=== PATIENT | male | born 1980 | race Two or more races ===

== ENCOUNTER 2025-01-05 09:51 | Emergency (ER) | payer BC, OTHER ==
[~2025-01-05] VITALS: Ht 170.2 cm; Wt 69.2 kg
--- NOTE | 2025-01-05 10:57 | ED.PDOC ---
History of Present Illness HPI Comments 44-year-old male who presents to the ED with a chief complaint of wound check. Patient states he began experiencing a wound to left buttock 5 days ago, went to Dr. Rao[facility] walk-in clinic, was prescribed antibiotics. He has been taking antibiotics as prescribed, applying warm compresses to wound. States pain has worsened, increases with ambulation. Patient's states she has been applying the warm compresses, notices wounds are worsening. She states wounds have popped, or still actively bleeding, she noticed wounds are deep. Denies fever, chills, nausea, vomiting, diarrhea, dizziness, numbness/tingling, shortness of breath. No other symptoms or modifying factors present at this time. Chief Complaint: Wound Check Time Seen by MD: 10:50 Reviewed Notes: Medications, Allergies Allergies: Coded Allergies: NO KNOWN ALLERGIES (Unverified , 01/05/25) Information Source: Patient, Spouse Mode of Arrival: Ambulatory Severity: Moderate Timing: Days Duration: Since onset Prehospital treatment: Other (antibitoi) Family History Family History: Reviewed,noncontributory to illness, No family hx of Cancer, No family hx of DM, No family hx of Heart dennis, No family hx of HTN, No family hx ofKidney dennis, No family hx of Liver dennis, No family hx of Lung dennis, No family hx of Stroke Social History Smoker: Non-Smoker Alcohol: Denies ETOH Use Drugs: Denies Drug Use Lives In: Home Constitutional: denies: chills, diaphoresis, fatigue, fever, malaise, sweats, w eakness, others EENTM: denies: blurred vision, double vision, ear bleeding, ear discharge, ear drainage, ear pain, ear ringing, eye pain, eye redness, hearing loss, mouth pain, mouth swelling, nasal discharge, nose bleeding, nose congestion, nose pain, photophobia, tearing, throat pain, throat swelling, voice changes, others Respiratory: denies: cough, hemoptysis, orthopnea, SOB at rest, shortness of breath, SOB with excertion, stridor, wheezing, others Cardiovascular: denies: chest pain, dizzy spells, diaphoresis, Dyspnea on exertion, edema, irregular heart beat, left arm pain, lightheadedness, palpitations, PND, syncope, others Gastrointestinal: denies: abdomen distended, abdominal pain, blood streaked bowels, constipated, diarrhea, dysphagia, difficulty swallowing, hematemesis, melena, nausea, poor appetite, poor fluid intake, rectal bleeding, rectal pain, vomiting, others Genitourinary: denies: burning, dysuria, flank pain, frequency, hematuria, incontinence, penile discharge, penile sore, pain, testicle pain, testicle swe lling, urgency, others Neurological: denies: dizziness, fainting, headache, left sided numbness, left sided weakness, numbness, paresthesia, pre-existing deficit, right sided numbness, right sided weakness, seizure, speech problems, tingling, tremors, weakness, others Musculoskeletal: denies: back pain, gout, joint pain, joint swelling, muscle pain, muscle stiffness, neck pain, others Integumetry: reports: wounds (LT buttock); denies: bruises, change in color, change in hair/nails, dryness, laceration, lesions, lumps, rash, others Allergic/Immunocompromised: denies: Difficulty Healing, Frequent Infections, Hives, Itching, others Hematologic/Lymphatic: denies: anemia, blood clots, easy bleeding, easy bruising, swollen glands, others Endocrine: denies: excessive hunger, excessive sweating, excessive thirst, excessive urination, flushing, intolerance to cold, intolerance to heat, unexplained weight gain, unexplained weight loss, others Psychiatric: denies: anxiety, bipolar disorder, depression, hopeless, panic disorder, schizophrenia, sleepless, suicidal, others All Other Systems: Reviewed and Negative Physical Exam General Appearance: Moderate Distress, Normal HEENT: Normal ENT Inspection, Pharynx Normal, TMs Normal Neck: Full Range of Motion, Non-Tender, Normal, Normal Inspection Respiratory: Chest Non-Tender, Lungs Clear, No Accessory Muscle Use, No Respiratory Distress, Normal Breath Sounds Cardiovascular: No Edema, No JVD, No Murmur, No Gallop, Normal Peripheral Pulses, Regular Rate/Rhythm Breast Exam: Deferred Gastrointestinal: No Organomegaly, Non Tender, No Pulsatile Mass, Normal Bowel Sounds, Soft Genitalia: Deferred Pelvic: Deferred Rectal: Deferred Extremities: No calf tenderness, Normal capillary refill, Normal inspection, Normal range of motion, Non-tender, No pedal edema Musculoskeletal : Apperance: Normal Neurologic: Alert, electrician research II-XII nml as Tested, No Motor Deficits, Normal Affect, Normal Mood, No Sensory Deficits Cerebellar Function: Normal Reflexes: Normal Skin: Dry, Normal Color, Warm, Wounds (Left gluteal region extending into the perineum) Peripheral Pulses: 3+ Radial (R), 3+ Radial (L) Lymphatic: No Adenopathy Was a procedure done? Was a procedure done?: No Differential Dx Considerations may include: Abscess Necrotizing infection X-Ray, Labs, Meds, VS Vital Signs Date Time Temp Pulse Resp B/P (MAP) Pulse Ox O2 Delivery O2 Flow Rate FiO2 01/05/25 13:29 90 19 142/85 01/05/25 13:15 98.9 90 16 142/85 (104) 98 98.9 01/05/25 13:15 90 16 98 Room Air 01/05/25 09:59 98.0 107 18 140/97 98 98.0 Lab Test 01/05/25 15:06 01/05/25 10:53 Range/Units Lactic Acid Level Pending White Blood Count 8.8 4.4-10.8 10^3/uL Red Blood Count 4.64 4.5-5.90 10^6/uL Hemoglobin 15.3 13.5-17.5 g/dL Hematocrit 43.2 41.0-53.0 % Mean Corpuscular Volume 93.1 80.0-100.0 fL Mean Corpuscular Hemoglobin 33.0 H 28.0-32.0 pg Mean Corpuscular Hemoglobin Concent 35.5 32.0-36.0 g/dL Red Cell Distribution Width 13.0 11.8-14.3 % Platelet Count 498 H 140-450 10^3/uL Mean Platelet Volume 6.3 L 6.9-10.8 fL Neutrophils (%) (Auto) 62.7 37.0-80.0 % Lymphocytes (%) (Auto) 21.3 10.0-50.0 % Monocytes (%) (Auto) 13.8 H 0.0-12.0 % Eosinophils (%) (Auto) 1.8 0.0-7.0 % Basophils (%) (Auto) 0.4 0.0-2.0 % Neutrophils # (Auto) 5.5 1.6-8.6 10 ^3/uL Lymphocytes # (Auto) 1.9 0.4-5.4 10 ^3/uL Monocytes # (Auto) 1.2 0-1.3 10 ^3/uL Eosinophils # (Auto) 0.2 0-0.8 10 ^3/uL Basophils # (Auto) 0 0-0.2 10 ^3/uL Nucleated Red Blood Cells 0.0 % Sodium Level 142 136-145 mmol/L Potassium Level 4.1 3.5-5.1 mmol/L Chloride Level 107 98-107 mmol/L Carbon Dioxide Level 25 20-31 mmol/L Anion Gap 10 5-15 Blood Urea Nitrogen 13 9-23 mg/dL Creatinine 0.81 0.700-1.30 mg/dL Glomerular Filtration Rate Calc 112 >90 mL/min BUN/Creatinine Ratio 16.0 10.0-20.0 Serum Glucose 162 H 74-106 mg/dL Calcium Level 9.2 8.7-10.4 mg/dL Current Medications Medications (Trade) Dose Ordered Sig/Anthony Route Start Time Stop Time Status Last Admin Sodium Chloride 1,000 ml @ 1,000 mls/hr Q1H ONCE IV 01/05/25 12:30 01/05/25 13:29 DC 01/05/25 13:30 Morphine Sulfate 4 mg ONCE ONCE IV 01/05/25 12:30 01/05/25 12:31 DC 01/05/25 13:29 Ondansetron HCl (Zofran) 4 mg ONCE ONCE IV 01/05/25 12:30 01/05/25 12:31 DC 01/05/25 13:30 [place] [id number] Ph: [phone] DIAGNOSTIC IMAGING Diagnostic Imaging Report : [id number] Signed PATIENT: ANIA LUCIAACCT: [id number] UNIT: [id number] : 1980 LOC: ER ROOM / BED: / AGE / SEX: 44 / M ADM STATUS: REG ER SERVICE 1201 ORDERING PHYSICIAN: RUBEN ZUNIGA MD PROCEDURE(s): PL2CT - PELVIS WO CONTRAST REASON: buttockwoundcellulitis ORDER NUMBER(s): [id number], ACCESSION NUMBER(s): [id number] EXAM: CT PELVIS WO CONTRAST HISTORY: buttockwoundcellulitis COMPARISON: None TECHNIQUE: Noncontrast axial CT images of the pelvis were performed. Sagittal and coronal reformatted images were obtained. This CT exam was performed using one or more of the following dose reduction techniques: Automated exposure control, adjustment of the mA and/or kV according to patient size, or use of iterative reconstruction technique. Radiation Dose Information: CT Dose: CTDI volume is 21.0 mGy. Dose-length product is 890.77 mGy*cm. FINDINGS: There are pockets of gas and fat stranding in the subcutaneous fat of the left gluteal region and perineum (images 53-70, series 2). There may be a subcutaneous abscess or developing abscess in the subcutaneous fat (image 69, series 2; image 90, series 601) measuring 2 cm. No obvious communication is identified to the anus or rectum. No abnormal bowel dilatation, free air, or free fluid. There are descending colon diverticula without evidence of acute diverticulitis, although the colon is not fully imaged here. The appendix is not dilated. The prostate is mildly enlarged. The urinary bladder is unremarkable. No fracture or dislocation are identified about the pelvis or hips. No si gnificant degenerative changes of the hips. There is [id number] lower lumbar degenerative disc disease. IMPRESSION: 1. Pockets of gas and fat stranding in the left perineum and gluteal subcutaneous fat suggestive of gas forming bacterial infection. Additionally, there may be abscess or developing abscess in the left gluteal subcutaneous fat measuring 2 cm. Recommend surgical consultation as soft tissue debridement may be warranted. 2. Mild prostatic enlargement. 3. Colonic diverticulosis without evidence of acute diverticulitis. The colon is not fully imaged here. 4. Lower lumbar degenerative disc disease. ATED BY: FLOYD GRAJEDA MD DICTATED DATE/TIME: 01/05/25 125 SIGNED BY: FLOYD GRAJEDA MD SIGNED DATE/TIME: 01/05/25 125 CC: Patient alert. Came in for a wound in the left butt cheek. Vitals stable. Answering questions. CT scan of the pelvis does show gas-forming organism infection. Surgical consultation. Possibly will need higher level of transfer. Establish intravenous access. Was given fluids. Spoke with general surgeon Dr. Fischl stated that we do not have Urology on-call as well as him alone can not do bright because he will need another para hands for complicated surgery like this which can going to full-blown sepsis causing harm to the patient. Was instructed to transferred to higher level of care. Was given Rocephin. Was given clindamycin. Explained to the patient. Continue to monitor. Time of 1ST Reevaluation: 11:20 Reevaluation 1ST: Unchanged Patient Education/Counseling: Diagnosis, Treatment, Prognosis Family Education/Counseling: Diagnosis, Treatment, Need For Follow Up SEPSIS Sepsis Screen Date sepsis recognized/suspect: Jan 05, 2025 Time Sepsis recognized/suspect: 1002 Recent Procedure: No On Antibiotic Therapy: No Respiratory Rate >20: No Heart Rate >90: Yes Temp<36 C (96.8 F) or >38.3 C: No SBP <90 or MAP <65 mmHG: No New Acute Mental Status Change: No Is the patient on CPAP, BIPAP,: No Physician Orders Urinalysis (01/05/25 10:13) Pelvis Wo Contrast (01/05/25 12:01) Sodium Chloride 0.9% (01/05/25 12:30) Blood Culture (01/05/25 14:32) Lactic Acid W/ Reflex Order (01/05/25 14:32) Clindamycin 300mg Iv (Cleocin Iv) (01/05/25 14:45) * Surgical Consult (01/05/25 ) Imaging Transfer Request (01/05/25 14:54) Vital Signs Date Time Temp Pulse Resp B/P (MAP) Pulse Ox O2 Delivery O2 Flow Rate FiO2 01/05/25 13:29 90 19 142/85 01/05/25 13:15 98.9 90 16 142/85 (104) 98 98.9 01/05/25 13:15 90 16 98 Room Air 01/05/25 09:59 98.0 107 18 140/97 98 98.0 Laboratory Tests Test 01/05/25 10:53 01/05/25 15:06 White Blood Count 8.8 10^3/uL (4.4-10.8) Lactic Acid Level Pending Medications Medications Dose Ordered Sig/Anthony Route Start Time Stop Time Status Last Admin Dose Admin Morphine Sulfate 4 mg ONCE ONCE IV 01/05/25 12:30 01/05/25 12:31 DC 01/05/25 13:29 Ondansetron HCl 4 mg ONCE ONCE IV 01/05/25 12:30 01/05/25 12:31 DC 01/05/25 13:30 Sodium Chloride 1,000 ml @ 1,000 mls/hr Q1H ONCE IV 01/05/25 12:30 01/05/25 13:29 DC 01/05/25 13:30 Departure 1 Departure Time of Disposition: 14:36 Impression: Primary Impression: Necrotizing cellulitis Disposition: 02 SHORT TERM HOSPITAL Admit to: Med Surg Condition: Guarded Critical Care Note Critical Care Time?: Yes (90 min-critical care time only) Stability Stability form required: No Heart Score Heart Score: Heart Score Response (Comments) Value History N/A 0 EKG N/A 0 Age N/A 0 Risk Factors N/A 0 Troponin N/A 0 Total 0 I personally scribed for RUBEN ZUNIGA MD ([email or web address]) on 01/05/25 at 10:57. Electronically submitted by Ana Goodman ([email or web address]). I personally scribed for RUBEN ZUNIGA MD ([email or web address]) on 01/05/25 at 13:41. Electronically submitted by Ana Goodman ([email or web address]). RUBEN ZUNIGA MD Jan 05, 2025 10:57
[2025-01-05 11:07] LABS: Hematocrit 43.2 % (41.0-53.0); Hemoglobin 15.3 g/dL (13.5-17.5); Mean Corpuscular Hemoglobin 33.0 pg (28.0-32.0); Mean Corpuscular Volume 93.1 fL (80.0-100.0); Nucleated Red Blood Cells % 0.0 %
[2025-01-05 11:19] LABS: Chloride 107 mmol/L (98-107); Potassium 4.1 mmol/L (3.5-5.1); Sodium 142 mmol/L (136-145)
[2025-01-05 11:20] LABS: Anion Gap 10 (5-15); Carbon Dioxide 25 mmol/L (20-31)
[2025-01-05 11:21] LABS: Calcium 9.2 mg/dL (8.7-10.4)
[2025-01-05 11:26] LABS: BUN/Creatinine Ratio 16.0 (10.0-20.0); Blood Urea Nitrogen 13 mg/dL (9-23); Glucose 162 mg/dL (74-106)
--- NOTE | 2025-01-05 12:59 | DVH ---
EXAM: CT PELVIS WO CONTRAST HISTORY: buttockwoundcellulitis COMPARISON: None TECHNIQUE: Noncontrast axial CT images of the pelvis were performed. Sagittal and coronal reformatted images were obtained. This CT exam was performed using one or more of the following dose reduction techniques: Automated ex posure control, adjustment of the mA and/or kV according to patient size, or use of iterative reconst ruction technique. Radiation Dose Information: CT Dose: CTDI volume is 21.0 mGy. Dose-length product is 890.77 mGy*cm. FINDINGS: There are pockets of gas and fat stranding in the subcutaneous fat of the left gluteal region and per ineum (images 53-70, series 2). There may be a subcutaneous abscess or developing abscess in the sub cutaneous fat (image 69, series 2; image 90, series 601) measuring 2 cm. No obvious communication is identified to the anus or rectum. No abnormal bowel dilatation, free air, or free fluid. There are d escending colon diverticula without evidence of acute diverticulitis, although the colon is not fully imaged here. The appendix is not dilated. The prostate is mildly enlarged. The urinary bladder is unremarkable. No fracture or dislocation are identified about the pelvis or hips. No significant dege nerative changes of the hips. There is [id number] lower lumbar degenerative disc disease. IMPRESSION: 1. Pockets of gas and fat stranding in the left perineum and gluteal subcutaneous fat suggestive of g as forming bacterial infection. Additionally, there may be abscess or developing abscess in the left gluteal subcutaneous fat measuring 2 cm. Recommend surgical consultation as soft tissue debridement may be warranted. 2. Mild prostatic enlargement. 3. Colonic diverticulosis without evidence of acute diverticulitis. The colon is not fully imaged he re. 4. Lower lumbar degenerative disc disease.
[2025-01-05] MEDS ORDERED: MORPHINE SULFATE 4 MG/ML SYR/VIAL ONE (13:26)
[2025-01-05] MEDS ORDERED: ONDANSETRON HCL 4 MG/2 ML VIAL ONE (13:26)
[2025-01-05] MEDS: MORPHINE SULFATE 4 MG/ML SYR/VIAL IV ONE (13:29)
[2025-01-05] MEDS: ONDANSETRON HCL 4 MG/2 ML VIAL IV ONE (13:30)
[2025-01-05] MEDS: SODIUM CHLORIDE 0.9% 1,000 ML IV ONE ×2 (13:30)
[2025-01-05] MEDS ORDERED: CLINDAMYCIN 300MG IV 50 ML IV ONE (14:45)
[2025-01-05] MEDS ORDERED: PIPERACILLIN-TAZOB 3.375GM 100 ML IV ONE (16:30)
[2025-01-05] MEDS ORDERED: VANCOMYCIN 1GM/250ML KIT 250 ML IV ONE (16:30)
[2025-01-05 17:30] VITALS: BP 136/89; PULSE 85; RESP 16; TEMP 98.4; O2SAT 100
== END 2025-01-05 17:38 | disposition short-term general hospital (02) ==
LOC: ER 09:51
DX: L03.317 Cellulitis of buttock (principal); I96 Gangrene, not elsewhere classified; Z48.00 Encounter for change or removal of nonsurgical wound dressing
CPT/HCPCS: 36415; 72192; 80048; 83605; 85025; 87040; 96361; 96365; 96375; 99285; J0696; J2270; J2405; J7030